=== PATIENT | male | born 1990 | race Caucasian/White ===

== ENCOUNTER 2019-05-12 21:38 | Emergency (ER) | payer BC, SELFPAY ==
[2019-05-12 21:39] VITALS: BP 157/93; PULSE 82; RESP 15; TEMP 36.6; O2SAT 96; BMI 32.8
--- NOTE | 2019-05-12 22:03 | US_ITS ---
STUDY: SCROTUM ULTRASOUND REASON FOR EXAM: Male, 28 years old. Pain. TECHNIQUE: Ultrasound evaluation of the scrotum was performed with color Doppler and static abraham-scale imaging. COMPARISON: None. FINDINGS: RIGHT Testicle: No mass, normal echogenicity. Normal arterial and venous Doppler flow. Measures 4.7 x 3.1 x 2.5 cm. Epididymis: Unremarkable. Hydrocele: None. Varicocele: None. LEFT Testicle: No mass, normal echogenicity. Normal arterial and venous Doppler flow. Measures 4.3 x 3.2 x 2.6 cm. Epididymis: Unremarkable. Hydrocele: Trace. Varicocele: None. US/Testicular with Arterial Flow IMPRESSION: Negative for bilateral testicular mass, torsion or epididymitis. Trace left hydrocele. Electronically Signed: Fabrice Quintero, at 23:53 EDT Tel , Service support ,
--- NOTE | 2019-05-12 22:03 | ED.DCSUM_ITS ---
History of Present Illness Chief Complaint: Male Pain/Injury Detail of Chief Complaint: Testicular pain Informant: Patient Onset: Weeks - 1 week Context: Gradual Onset Timing: Waxes and wanes Current Severity: Moderate Maximum Severity: Moderate Narrative: 1 week history of testicular pain. He has pain bilaterally. No significant erythema or edema. Patient does report urinary frequency and only small amounts. Urine appears concentrated. He has no lesions or discharge. No definitive diagnosis of gonorrhea or chlamydia in the past. No fever or chills. He has had some mild right flank pain. Past surgical history is significant for prior appendectomy. Past Medical History - Allergies and Home Meds Allergies/Adverse Reactions: Allergies Penicillins Allergy (Verified 05/12/19 21:41) Hives Sulfa (Sulfonamide Antibiotics) Allergy (Verified 05/12/19 21:41) Hives Primary Care Physician: Dontae Yo MD [Primary Care Provider] - Prior records reviewed: Yes Past Medical History: - - Reviewed Surgical History: appendectomy Smoking Status: Current every day smoker Review of Systems General: Denies: Chills, Fever Eyes: Denies: Visual changes - bilaterally ENT: Denies: Bilateral ear pain Cardiovascular: Denies: Chest pain Respiratory: Denies: Dyspnea Gastrointestinal: Reports: Abdominal pain - Mild right flank pain. Denies: Nausea, Vomiting, Diarrhea Genitourinary: Reports: Frequency. Denies: Dysuria, Hematuria Musculoskeletal: Denies: Extremity Pain Skin: Denies: Rash Neurological: Denies: Headache Hematologic: Denies: Easy bruising, Easy bleeding Allergy: Denies: Uticaria Physical Exam Vital Signs/Narrative: Vital Signs Temp Pulse Resp BP Pulse Ox 05/12/19 21:39 97.9 F 82 15 157/93 H 96 Inital Vital Signs reviewed: Yes General: Well nourished, Well developed Head: Normocephalic ENT: Moist mucous membranes Neck: Supple Cardiovascular: Regular rate, Regular rhythm Respiratory: No distress, CTA bilaterally Abdomen: Soft, Normal bowel sounds, Tender - Mild suprapubic tenderness to palpation.. Negative for: Guarding, Rebound tenderness : - - Mild testicular tenderness bilaterally. No palpable masses. No scrotal edema or erythema. Mild tenderness over the epididymis bilaterally. Back: Nontender Extremities: Nontender Skin: Normal color, No rash Neurological: Alert, Oriented x3 Psychological: Normal affect Diagnostic/Tx/Re-eval 05/12/19 22:03 US Testicular [Testicular with Arterial Flow] [US] Stat IMPRESSION: Negative for bilateral testicular mass, torsion or epididymitis. Trace left hydrocele. Laboratory Results 05/12/19 05/12/19 22:10 22:18 Urine Color Yellow Urine Clarity Sl. Cloudy Urine pH 5.0 Ur Specific [place] 1.030 Urine Protein 30 H Urine Glucose (UA) Normal Urine Ketones 5 H Urine Occult Blood 50 H Urine Nitrite Negative Urine Bilirubin 1 H Urine Urobilinogen 1 H Ur Leukocyte Esterase Negative Urine RBC 0-5 SEEN Urine WBC 0-5 SEEN Ur Squamous Epith Cells 0 SEEN Urine Bacteria 0 SEEN Urine Mucus 1+ Chlam trachomat DNA PCR Negative N.gonorrhoeae DNA (PCR) Negative - Medical Decision Making Patient did take ibuprofen just prior to arrival. Test results are discussed with the patient. He does have a small amount of hydrocele on the left. In light of this I did recommend scrotal support. If he does have a kidney stone I believe it is very small. We will treat him with Toradol. He will be referred to urology if not improving. ED Disposition - Plan for ED Patient: Disposition: Home or Assisted Living Diagnosis: Testicular pain Instructions: TESTICULAR PAIN, Unclear Cause Prescriptions: Ketorolac [Toradol] 10 mg PO Q6H PRN #20 tablet PRN Reason: Pain Score 1-10/10 Referrals: Sanjiv Castaneda MD [STAFF PHYSICIAN] - 1 Week if not improving
[2019-05-12 22:22] LABS: Bacteria 0 SEEN /hpf (None Seen); Squamous Epithelial Cells - UA 0 SEEN /hpf (0-5)
[2019-05-12 22:25] LABS: Color, Urine Yellow (Yellow); Glucose, Dipstick Normal (Normal); Ketone-Dipstick 5 mg/dl (Negative); Leukocyte Esterase-Dipstick Negative /ul (Negative); Nitrite-Dipstick Negative (Negative); Occult Blood-Urine 50 /ul (Negative); Protein-Dipstick 30 mg/dl (Negative); Urine Clarity Sl. Cloudy (Clear); Urine Urobilinogen 1 mg/dl (Normal)
[2019-05-12 22:28] LABS: Urine Bilirubin Dipstick 1 mg/dL (Negative)
[2019-05-12 22:39] LABS: Mucous, Urine 1+ /hpf (<or=2+); Red Blood Cells-Urine 0-5 SEEN /hpf (0-5); White Blood Cells 0-5 SEEN /hpf (0-5)
[2019-05-12 23:56] LABS: Chlamydia Trachomatis by PCR Negative (Negative); Neisserai gonorrhoeae by PCR Negative (Negative); Probe Check PASS; Sample Adequacy Control PASS; Specimen Processing Control PASS
[2019-05-13 00:47] VITALS: BP 118/76; PULSE 65; RESP 16; O2SAT 98
== END 2019-05-13 00:48 | disposition home or self-care (01) ==
PROVIDERS: Emergency Provider Emergency Medicine; Family Provider Family Medicine; PCP Family Medicine
DX: N50.819 Testicular pain, unspecified (principal); F17.200 Nicotine dependence, unspecified, uncomplicated; N20.0 Calculus of kidney
CPT/HCPCS: 76870; 81001; 87491; 87591; 93976; 99282

== ENCOUNTER 2019-06-04 05:59 | Emergency (ER) | payer BC, SELFPAY ==
[2019-06-04 06:00] VITALS: BP 135/91; PULSE 60; RESP 18; TEMP 36.8; O2SAT 98; BMI 33.1
--- NOTE | 2019-06-04 06:18 | CT_ITS ---
STUDY: CT ABDOMEN AND PELVIS WITHOUT CONTRAST REASON FOR EXAM: Male, 28 years old. Right-sided flank pain with radiation into his right groin. RADIATION DOSAGE (If Supplied By Facility): CTDIvol = ( 14.40 ) mGy, DLP = ( 827.62 ) mGycm TECHNIQUE: Transaxial images were obtained from the dome of the diaphragm to the symphysis pubis without oral contrast, and without intravenous contrast. Sagittal and coronal images were reconstructed. Individualized dose optimization techniques were used for this CT. COMPARISON: CT of the abdomen and pelvis dated February 28, 2015. FINDINGS: There is minimal bilateral basilar dependent atelectasis. The visualized portions of the heart are within normal limits. Normal liver. Normal gallbladder and extrahepatic biliary system. Normal spleen. Normal pancreas. Normal bilateral adrenal glands. There is mild hydronephrosis and hydroureter secondary to distal ureteral calculus at the ureterovesical junction measuring approximately 4.7 mm in greatest dimension. Normal left kidney. Normal visualized stomach. There is no evidence for dilated bowel, ascites or pneumoperitoneum. The small bowel has a grossly normal appearance. The ascending colon is nondistended. Transverse colon is also mildly nondistended with mild thickening of the deluca. Scattered colonic diverticula are present. There are surgical clips in the region of the appendix consistent with a prior appendectomy. Normal abdominal aorta. Normal inferior vena cava. Normal retroperitoneum. Normal urinary bladder. Normal visualized prostate gland. There appear to be small inguinal hernias containing fat. There are diffuse degenerative changes of the visualized thoracic spine. CT/Abdomen/Pelvis without Cont IMPRESSION: Mild right-sided hydronephrosis and hydroureter secondary to distal ureteral calculus. Electronically Signed: Heavenly Turner MD at 7:25 EDT , Service support ,
[2019-06-04 06:33] LABS: Absolute Lymphocyte Count 1.46 X10^3/uL (0.83-4.51); Absolute Neutrophil Count 4.5 X10^3/uL (2.0-7.7); Basophil# 0.07 X10^3/uL; Eosinophil# 0.22 X10^3/uL; Eosinophils% 3.1 % (0-5); Hematocrit 42.8 % (40-54); Hemoglobin 14.4 g/dL (13.0-16.5); Lymphocyte # 1.46 X10^3/ul (4.0); Lymphocyte % 20.8 % (19-41); Mean Corp Hgb Conc 33.6 g/dL (32-36); Mean Corpuscular Hgb 29.6 pg (27.0-32.0); Mean Corpuscular Volume 87.9 fL (80-94); Mean Platelet Vol. 9.7 fl (6.2-12.0); Monocyte# 0.74 X10^3/uL; Monocyte% 10.5 % (0-10); NRBC Flagged by Analyzer 0 % (0-5); Neutrophil # 4.49 X10^3/uL (2.7-7.7); Platelet Count 141 K/mm3 (150-450); RBC Distribution Width CV 11.9 % (11.6-14.6); Red Blood Count 4.87 M/mm3 (4.6-6.2)
[2019-06-04] MEDS: 0.9% Normal Saline 1,000 ML 999 ML IV (06:36)
[2019-06-04] MEDS: Ondansetron 4 MG/2 ML Vial IV (06:36)
[2019-06-04] MEDS: Morphine 4 MG/ML Syringe IV (06:37)
[2019-06-04] MEDS: Ketorolac 30 MG/ML Syringe IV (06:37)
--- NOTE | 2019-06-04 06:42 | ED.VIS.GEN ---
History of Present Illness Chief Complaint: Abd Pain Informant: Patient Onset: Today Context: Sudden Onset Timing: Continuous, Waxes and wanes Current Severity: Severe Maximum Severity: Severe Worsened by: Nothing Relieved by: Nothing Narrative: Patient is a 28-year-old male with no significant past medical history presenting with right flank and back pain. Patient states he had a small ache in his right flank area last night when he went to bed but did not think much of it. In the middle the night he woke up with severe flank and back pain. It radiates into his groin. The pain is constant but it seems to fluctuate in intensity. He describes it as sharp and aching. He does feel that he is having a hard time urinating but is still able to. He has associated nausea and one episode of vomiting. He had normal bowel movements. He denies any black or bloody vomit or stool. Patient was evaluated for similar pain about 3 weeks ago but at that time he was more testicular pain. He had a urine and ultrasound which were grossly negative and he was discharged home. Patient states the pain had resolved but then this pain started again tonight. Patient denies any abdominal pain with it. He denies any chest pain or difficulty breathing. He denies any fever or chills. He has not noticed any blood in his urine. He denies any penile discharge. He currently does not have any testicular pain. Past Medical History - Allergies and Home Meds Allergies/Adverse Reactions: Allergies Penicillins Allergy (Verified 05/12/19 21:41) Hives Sulfa (Sulfonamide Antibiotics) Allergy (Verified 05/12/19 21:41) Hives Primary Care Physician: Dontae Yo MD [Primary Care Provider] - Past Medical History: None Surgical History: appendectomy Smoking Status: Current every day smoker Review of Systems All systems negative except as indicated Gastrointestinal: Reports: - - Flank pain Genitourinary: Reports: - - Decreased urination Musculoskeletal: Reports: Back pain - Right lower Physical Exam Vital Signs/Narrative: Vital Signs Temp Pulse Resp BP Pulse Ox 06/04/19 06:00 98.3 F 60 18 135/91 H 98 Inital Vital Signs reviewed: Yes General: Well nourished, Well developed, No Acute Distress, - - Patient is hunched over the bed when I first come in Head: Normocephalic, Atraumatic Eyes: Perrl, EOMI ENT: Moist mucous membranes, No rhinorrhea Neck: Supple, Nontender Cardiovascular: Regular rate, Regular rhythm, No murmurs Respiratory: No distress, CTA bilaterally, Chest nontender Abdomen: Soft, Nontender, Nondistended, Normal bowel sounds. Negative for: Shrestha's sign Back: Normal Inspection, - - Right flank tenderness to palpation. Negative for: CVA tenderness Extremities: Nontender, No edema Skin: Normal color, No rash Neurological: Alert, Oriented x3, Cranial nerves II-XII grossly intact, Normal Strength, Normal Sensation Psychological: Normal affect, Normal Mood Diagnostic/Tx/Re-eval Clinical Impression(s) from Imaging Studies Abdomen/Pelvis CT 06/04/19 06:18 IMPRESSION: Mild right-sided hydronephrosis and hydroureter secondary to distal ureteral calculus. Electronically Signed: Heavenly Turner MD at 7:25 EDT , Service support , Laboratory Data 06/04/19 06/04/19 06/04/19 06:28 06:28 06:45 WBC 7.0 RBC 4.87 Hgb 14.4 Hct 42.8 MCV 87.9 MCH 29.6 MCHC 33.6 RDW Std Deviation 38.0 RDW Coeff of [place] 11.9 Plt Count 141 L MPV 9.7 Immature Gran % (Auto) 0.600 Neut % (Auto) 64.0 Lymph % (Auto) 20.8 [place] % (Auto) 10.5 H Eos % (Auto) 3.1 Baso % (Auto) 1.0 Absolute Neuts (auto) 4.5 Absolute Lymphs (auto) 1.46 Nucleated RBC % 0 Sodium 142 Potassium 3.5 Chloride 108 H Carbon Dioxide 26.0 Anion Gap 8 BUN 15 Creatinine 1.23 Estim Creat Clear Calc 96.08 Est GFR (MDRD) Af Amer 90 Est GFR (MDRD) Non-Af 75 BUN/Creatinine Ratio 12.2 Glucose 104 Calcium 8.8 Urine Color Yellow Urine Clarity Clear Urine pH 5.0 Ur Specific [employer] [place] [employer] 1.030 Urine Protein 15 H Urine Glucose (UA) Normal Urine Ketones 5 H Urine Occult Blood Negative Urine Nitrite Negative Urine Bilirubin Negative Urine Urobilinogen 1 H Ur Leukocyte Esterase Negative Urine RBC 0 SEEN Urine WBC 0 SEEN Ur Squamous Epith Cells 0-5 SEEN Urine Bacteria 0 SEEN Urine Mucus 2+ - Medical Decision Making Patient is evaluated for sudden onset of right flank pain. He appears uncomfortable but no acute distress. Vital signs are stable. CBC, BMP and urinalysis are grossly normal. CT does show right ureterolithiasis just proximal to the UVJ. Is explained to patient's pain. Patient is given IV morphine, fluids and Toradol. He has improvement of his symptoms with this treatment. He will be discharged home with kidney stone instructions as well as symptomatic treatment. He has a small stone which I expect him to pass spontaneously. He is given urology for follow-up as needed. He is encouraged to follow-up with his primary care doctor. He is given a work note for today. Patient is counseled on signs and symptoms requiring return to the emergency room. Patient verbalizes agreement and understand this plan. Patient discharged home in stable and improved condition. ED Disposition - Plan for ED Patient: Disposition: Home or Assisted Living Diagnosis: Right ureteral stone Instructions: KIDNEY STONE w/ Colic Prescriptions: Tamsulosin HCl [Flomax] 0.4 mg PO DAILY #7 cap Prescription Printed Ibuprofen [Ibu] 600 mg PO Q6H PRN PRN #20 tab PRN Reason: Pain Or Fever Prescription Printed Hydrocodone/Acetaminophen [Altheimer 5-325 Tablet] 1 ea PO Q8 PRN 3 Days #12 tab PRN Reason: Pain Score 6-10/10 Prescription Printed Ondansetron [Zofran Odt] 4 mg PO Q8H PRN PRN #10 tab PRN Reason: Nausea Prescription Printed Referrals: Dontae Yo MD [Primary Care Provider] - Sanjiv Castaneda MD [STAFF PHYSICIAN] - Additional Instructions: Take medications as prescribed. Avoid operating any heavy machinery while taking Altheimer. Return to ER if you developing worsening symptoms or unable to control your pain. If your symptoms are persistent please follow-up with urology which you have been referred to today. Otherwise, please follow-up with your primary care doctor. Drink plenty of fluids.
[2019-06-04 06:46] LABS: Anion Gap 8 (5-15); BUN 15 mg/dL (7-18); BUN/Creat Ratio 12.2 RATIO (10-20); Calcium,Total 8.8 mg/dL (8.5-10.1); Chloride 108 mmol/L (98-107); Creatinine, Serum 1.23 mg/dL (0.70-1.30); EST Glomerular Filtration Rate 75 mL/min (>60); Est Glom Filt Rate - Afr Amer 90 mL/min (>60); Estimated Creatinine Clearance 96.08 ml/min; Glucose 104 mg/dL (74-106); Potassium 3.5 mmol/L (3.5-5.1); Sodium Level 142 mmol/L (136-145)
[2019-06-04 06:51] LABS: Bacteria 0 SEEN /hpf (None Seen); Red Blood Cells-Urine 0 SEEN /hpf (0-5); White Blood Cells 0 SEEN /hpf (0-5)
[2019-06-04 07:08] LABS: Color, Urine Yellow (Yellow); Glucose, Dipstick Normal (Normal); Ketone-Dipstick 5 mg/dl (Negative); Leukocyte Esterase-Dipstick Negative /ul (Negative); Nitrite-Dipstick Negative (Negative); Occult Blood-Urine Negative /ul (Negative); Protein-Dipstick 15 mg/dl (Negative); Urine Bilirubin Dipstick Negative (Negative); Urine Clarity Clear (Clear); Urine Urobilinogen 1 mg/dl (Normal)
[2019-06-04 07:18] LABS: Mucous, Urine 2+ /hpf (<or=2+); Squamous Epithelial Cells - UA 0-5 SEEN /hpf (0-5)
[2019-06-04 08:32] VITALS: BP 106/77; PULSE 62; RESP 17; O2SAT 98
== END 2019-06-04 08:33 | disposition home or self-care (01) ==
PROVIDERS: Emergency Provider Emergency Medicine; Family Provider Family Medicine; PCP Family Medicine
DX: N13.2 Hydronephrosis with renal and ureteral calculous obstruction (principal); F17.200 Nicotine dependence, unspecified, uncomplicated
CPT/HCPCS: 74176; 80048; 81001; 85025; 96361; 96374; 96375; 99284; J7030; J2405

== ENCOUNTER 2020-07-16 22:14 | Emergency (ER) | payer MEDICAID, SELFPAY ==
[2020-07-16 22:16] VITALS: BP 163/95; PULSE 86; RESP 18; TEMP 35.7; O2SAT 100; BMI 34.5
--- NOTE | 2020-07-16 22:26 | EKG12_ITS ---
Test Reason : SOB Blood Pressure : / mmHG Vent. Rate : 063 BPM Atrial Rate : 063 BPM P-R Int : 180 ms QRS Dur : 106 ms QT Int : 390 ms P-R-T Axes : 025 -07 012 degrees QTc Int : 399 ms Normal sinus rhythm with sinus arrhythmia Minimal voltage criteria for LVH, may be normal variant Borderline ECG Confirmed by FLAVIA ALLEN, YESENIA ([id number]), manuscript editor CHRISTO HA ([id number]) on 07/18/2020 2:04:59 PM Referred By: MERLIN Confirmed By:RUPESH ALEJANDRO MD
--- NOTE | 2020-07-16 22:32 | ED.VIS.GEN ---
History of Present Illness Chief Complaint: Shortness of Breath Informant: Patient Onset: Weeks Context: Gradual Onset Timing: Intermittent Current Severity: Moderate Maximum Severity: Moderate Narrative: Patient is a 29-year-old male who is otherwise healthy who presents to the emergency department intermittent shortness of breath. Patient states it is been going on for about a month. 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 He states his been negative every time. He states sometimes, with exertion, he gets tightness that is bandlike across his chest. He states when he takes a deep breath, it seems to be painful. He has had a scant cough. He denies any fevers or chills. He denies any other systemic complaints. He has no history of pulmonary embolus. He does occasionally smoke. Prior similar symptoms: No Recent Illness/Hospitalization: No Past Medical History - Allergies and Home Meds Allergies/Adverse Reactions: Allergies Penicillins Allergy (Verified 07/16/20 22:34) Hives Sulfa (Sulfonamide Antibiotics) Allergy (Verified 07/16/20 22:34) Hives Primary Care Physician: Willi Arevalo,Out of [Primary Care Provider] - Prior records reviewed: Yes Past Medical History: None Surgical History: appendectomy Smoking Status: Current every day smoker Review of Systems General: Denies: Chills, Fever, Sweats Eyes: Denies: Visual changes - bilaterally, Diplopia ENT: Denies: Rhinorrhea, Sore throat Cardiovascular: Denies: Chest pain, Palpitations Respiratory: Reports: Dyspnea, Cough. Denies: Dyspnea on exertion Gastrointestinal: Denies: Abdominal pain, Nausea, Vomiting, Diarrhea, Melena, Hematochezia Genitourinary: Denies: Dysuria, Hematuria, Frequency Musculoskeletal: Denies: Back pain, Extremity Pain Skin: Denies: Rash, Wounds Neurological: Denies: Headache, Weakness, Numbness Physical Exam Vital Signs/Narrative: Vital Signs Temp Pulse Resp BP Pulse Ox 07/16/20 22:16 96.3 F L 86 18 163/95 H 100 Inital Vital Signs reviewed: Yes General: Well nourished, Well developed, No Acute Distress Head: Normocephalic, Atraumatic Eyes: Perrl, EOMI ENT: Moist mucous membranes, No rhinorrhea Neck: Supple, Nontender Cardiovascular: Regular rate, Regular rhythm, No murmurs Respiratory: No distress, CTA bilaterally, Chest nontender Abdomen: Soft, Nontender, Nondistended, Normal bowel sounds Back: Nontender, Normal Inspection Extremities: Nontender, No edema Skin: Normal color, No rash Neurological: Alert, Oriented x3, Cranial nerves II-XII grossly intact, Normal Strength, Normal Sensation Psychological: Normal affect, Normal Mood Diagnostic/Tx/Re-eval Chest X-Ray - ED: 1 View, Read by ED Physician, Normal, Heart, Lungs, Mediastinum Clinical Impression(s) from Imaging Studies Chest X-Ray 07/16/20 22:45 IMPRESSION: Normal x-ray examination of the chest. Electronically Signed: Lilia Mao MD at 23:03 EST , Service support , - Rhythm Strip Rhythm Strip: Sinus Rhythm Rate: 80 Ectopy: None - EKG Initial EKG Interpretation: Sinus Rhythm, No Acute Injury Pattern Prior: Unchanged - Medical Decision Making Patient presents with intermittent shortness of breath. He does describe some pleuritic pain. He is not hypoxic, tachypneic, or tachycardic. EKG was obtained on arrival. Was sinus rhythm without evidence of acute ischemia. Chest x-ray was done. It was reviewed by myself and both the radiologist. There is no evidence of acute infiltrative process, pneumothorax, or large cardiac silhouette. D-dimer was negative. At this point, I do not have a great explanation for the patient's dyspnea, but he is saturating 100% on room air and has an unremarkable work-up. I am going to add an inhaler to see if that helps if he has some underlying bronchospasm. He is comfortable with this plan of care and will be discharged home. Impression 1. Dyspnea ED Disposition - Plan for ED Patient: Instructions: ED Bronchitis, No Antibiotic (Adult) Referrals: [facility] Doctor,Out of [Primary Care Provider] -
[2020-07-16 22:34] VITALS: BP 154/86; PULSE 69; RESP 16
--- NOTE | 2020-07-16 22:45 | RAD_ITS ---
STUDY: X-RAY CHEST REASON FOR EXAM: Male, 29 years old. FEELS LIKE HE CAN''T CATCH HIS BREATH X 1 MONTH. TECHNIQUE: 1 view COMPARISON: Prior chest radiograph of 11/15/2016 FINDINGS: The lungs are clear and expanded. There is no demonstrated pleural abnormality. Normal size heart. Normal mediastinum and harry. Normal visualized pulmonary arteries. Normal visualized aortic arch and descending thoracic aorta. Normal visualized thoracic spine. Normal visualized ribs, clavicles, and shoulders. There is no demonstrated abnormality of the visualized soft tissue structures of the upper abdomen. RAD/Chest 1 View (Portable) IMPRESSION: Normal x-ray examination of the chest. Electronically Signed: Lilia Mao MD at 23:03 EST , Service support ,
[2020-07-16 22:54] LABS: Absolute Lymphocyte Count 2.38 X10^3/uL (0.83-4.51); Basophil# 0.07 X10^3/uL; Basophil% 0.9 % (0-1); Eosinophil# 0.23 X10^3/uL; Hematocrit 45.6 % (40-54); Hemoglobin 15.1 g/dL (13.0-16.5); Lymphocyte # 2.38 X10^3/ul (4.0); Lymphocyte % 31.3 % (19-41); Mean Corp Hgb Conc 33.1 g/dL (32-36); Mean Corpuscular Hgb 28.8 pg (27.0-32.0); Mean Platelet Vol. 9.9 fl (6.2-12.0); Monocyte# 0.87 X10^3/uL; Monocyte% 11.4 % (0-10); NRBC Flagged by Analyzer 0 % (0-5); Neutrophil # 4.02 X10^3/uL (2.7-7.7); Neutrophil % 52.9 % (47-70); Platelet Count 220 K/mm3 (150-450); RBC Distribution Width CV 11.9 % (11.6-14.6); Red Blood Count 5.24 M/mm3 (4.6-6.2); White Blood Count 7.6 K/mm3 (4.4-11.0)
[2020-07-16 23:04] LABS: Anion Gap 4 (5-15); BUN 18 mg/dL (7-18); BUN/Creat Ratio 17.3 RATIO (10-20); Calcium,Total 9.4 mg/dL (8.5-10.1); Chloride 108 mmol/L (98-107); Creatinine, Serum 1.04 mg/dL (0.70-1.30); EST Glomerular Filtration Rate 90 mL/min (>60); Est Glom Filt Rate - Afr Amer 109 mL/min (>60); Estimated Creatinine Clearance 112.63 ml/min; Glucose 89 mg/dL (74-106); Potassium 3.6 mmol/L (3.5-5.1); Sodium Level 142 mmol/L (136-145)
[2020-07-16 23:06] LABS: D-Dimer Quantitative (DVT/PE) 0.27 FEU/ug/m (0.27-0.49)
[2020-07-16 23:37] VITALS: BP 148/74; PULSE 71; RESP 16; O2SAT 98
== END 2020-07-16 23:38 | disposition home or self-care (01) ==
LOC: ED 23:23
PROVIDERS: Emergency Provider Emergency Medicine
DX: R06.00 Dyspnea, unspecified (principal); F17.200 Nicotine dependence, unspecified, uncomplicated
CPT/HCPCS: 71045; 80048; 85025; 85379; 93005; 99284; J7040; A4216

== ENCOUNTER 2021-02-04 12:37 | Emergency (ER) | payer OTHER, MEDICAID, SELFPAY ==
[2021-02-04 12:38] VITALS: BP 125/81; PULSE 103; RESP 16; TEMP 36.3; O2SAT 97; BMI 32.9
[2021-02-04] MEDS: Clindamycin HCl 150 MG Capsule 300 MG PO (15:57)
[2021-02-04] MEDS: Lidocaine 1% (20 ml mdv) 20 ML Vial INFILT (15:57)
[2021-02-04 15:58] VITALS: BP 138/74; PULSE 100; RESP 16; O2SAT 99
--- NOTE | 2021-02-04 18:47 | EDS_ITS ---
HPI History of Present Illness HPI Narrative: Patient presents with laceration to his right knee that occurred today. Patient was using a right angle pulp grinder and blender. Patient states he accidentally hit it against his right knee. Patient states his last tetanus was within 5 years. Patient denies any paresthesias or weakness. Patient states the bleeding stopped after a few minutes. Patient denies any other injuries. Chief Complaint: Laceration Informant: patient Occured/Mechanism Comment: Cut right knee with angle pulp grinder and blender Onset/Context/Timing Onset: Today Context: Sudden Onset Timing: Continuous Location: Right knee Worsened by: Nothing Relieved by: Nothing Associated Symptoms Associated Symptoms: Negative for Parasthesia and Weakness Narrative Tetanus Immunization: <5 years [facility] Medical History (Updated 02/04/21 @ 18:[address] Uday Ivy DO) Hypercholesterolemia Home Medications clindamycin HCl [Cleocin HCl] 300 mg PO Q6H #40 capsule 02/04/21 [Rx Last Taken Unknown] Allergy/AdvReac Type Severity Reaction Status Date / Time Penicillins Allergy Hives Verified 02/04/21 12:38 Sulfa (Sulfonamide Allergy Hives Verified 02/04/21 12:38 Antibiotics) Surgical History History of appendectomy Social History Smoking Status: Current every day smoker tobacco type: cigarettes ROS ROS ED Constitutional Constitutional ED: Denies chills or fever(s) Eyes Eyes: Denies blurry vision or change in vision ENT ENT ED: Denies rhinorrhea or sore throat Cardiovascular Cardiovascular: Denies chest pain or palpitations Respiratory/Chest Respiratory/Chest: Denies cough or dyspnea Gastrointestinal Gastrointestinal: Denies nausea or vomiting Genitourinary Genitourinary ED: Denies dysuria or hematuria Musculoskeletal Musculoskeletal: Denies back pain or neck pain Integumentary Denies abscess or rash Neurologic Neurologic: Denies headache(s) or weakness Allergic/Immunologic Allergic/Immunologic ED: Denies mouth swelling or urticaria EXAM Physical Exam Const Vital Signs: 02/04/21 12:38 02/04/21 15:58 Temperature 97.3 F L Temperature Source Temporal Pulse Rate 103 H 100 Respiratory Rate 16 16 Blood Pressure 125/81 H 138/74 H Blood Pressure Mean 95 Pulse Ox 97 99 Oxygen Delivery Method Room Air Positive well nourished and well developed General Appearance ED: well developed HEENT Reports moist mucous membranes normocephalic and atraumatic Extremity Extremity Narrative: There is a 4 cm linear laceration transversely across the anterior right knee. There are no foreign bodies. There is no active bleeding. There is mild gapping of the wound margins. There is full range of motion of the right knee. There is no laxity appreciated. There is no effusion. There is no swelling of the prepatellar bursa. There is no erythema or warmth. Neuro oriented x3, CN's II-XII intact bilaterally, moves all extremities and no sensory deficits noted Sensorium / Orientation: alert Motor Exam: strength 5/5 throughout Psych mental status grossly normal MDM MDM MDM Narrative Medical decision making narrative: The wound was cleaned and irrigated with copious amounts of normal saline. The wound was anesthetized with 1% plain lidocaine locally. The wound was closed with 5 simple interrupted #4-0 nylon sutures under sterile technique. Patient tolerated the procedure well. Bacitracin dressing was applied. Patient was given a dose of clindamycin here. Patient was given a prescription for clindamycin. Patient was instructed to keep the wound clean and dry. Patient was instructed to follow-up with his primary care physician in 7 days for wound recheck and suture removal. Patient understood and was agreeable with the plan. All questions were answered. Procedures Lacerations Right knee: Length: 4 cm Depth: Skin Shape: Linear Prep: Sterile Conditions and Chlorhexadine Laceration repair: Irrigated, Lidocaine, Local and Skin sutures Irrigated (ml): 100 Number of Sutures/[place]: 5 Suture Information: Ethilon, Simple and 4-0 Discharge Plan Triage Chief Complaint: Laceration ED Provider: Uday Ivy Dx/Rx/DC Orders Clinical Impression: Laceration of right knee Instructions: ED Laceration: All Closures Prescriptions: New clindamycin HCl [Cleocin HCl] 300 MG capsule 300 mg PO Q6H Qty: 40 RF: 0 Primary Care Provider: Care Physician,No Primary Referrals: Carmine Oro MD [NON-STAFF] - 7 Days for suture removal Care Physician,No Primary [Primary Care Provider] - Disposition Disposition: Home, Self Care Discharge Date/Time: 02/04/21 16:09
== END 2021-02-04 16:09 | disposition home or self-care (01) ==
PROVIDERS: Emergency Provider Emergency Medicine
DX: S81.011A Laceration without foreign body, right knee, initial encounter (principal); F17.210 Nicotine dependence, cigarettes, uncomplicated; W27.8XXA Contact with other nonpowered hand tool, initial encounter
CPT/HCPCS: 12002; 90471; 99283

== ENCOUNTER 2023-05-02 13:23 | Emergency (ER) | payer OTHER, MEDICAID, SELFPAY ==
[2023-05-02 13:26] VITALS: BP 141/88; PULSE 89; RESP 18; TEMP 36.3; O2SAT 98; BMI 32.8
--- NOTE | 2023-05-02 13:36 | EKG12_ITS ---
Test Reason : CHEST PAIN Blood Pressure : / mmHG Vent. Rate : 079 BPM Atrial Rate : 079 BPM P-R Int : 168 ms QRS Dur : 102 ms QT Int : 366 ms P-R-T Axes : 041 004 029 degrees QTc Int : 419 ms Normal sinus rhythm Normal ECG When compared with ECG of 16-JUL-2020 22:34, No significant change was found Confirmed by FLAVIA ALLEN, YESENIA ([id number]), publishing editor CHRISTO HA ([id number]) on 05/04/2023 9:53:09 AM Referred By: MEMO Confirmed By:RUPESH ALEJANDRO MD
--- NOTE | 2023-05-02 13:36 | RAD_ITS ---
STUDY: X-RAY CHEST REASON FOR EXAM: Male, 32 years old. Chest pain -- -- Pt c/o chest pain that''s been on and off past 3 days in addition to some and quot; stomach issues and quot; that include nausea. Hx of severe anxiety but this and quot;feels different TECHNIQUE: Single AP portable view of the chest. COMPARISON: Comparison is made with prior study dated July 16, 2020. FINDINGS: EKG electrodes are seen. The lungs are clear and expanded. There is no demonstrated pleural abnormality. Normal size heart. Normal mediastinum and harry. Normal visualized pulmonary arteries. Normal visualized aortic arch and descending thoracic aorta. Normal visualized thoracic spine. Normal visualized ribs, clavicles, and shoulders. There is no demonstrated abnormality of the visualized soft tissue structures of the upper abdomen. RAD/Chest 1 View (Portable) IMPRESSION: Normal x-ray examination of the chest. Electronically Signed: Eugene Calderón MD at 14:24 EDT ,
--- NOTE | 2023-05-02 13:37 | EDS_ITS ---
HPI History of Present Illness Chief Complaint: Chest Pain Detail of Chief Complaint: Chest pain, shortness of breath, abdominal pain Informant: patient Narrative Narrative: Patient presents to the emergency department with complaint of chest pain as well as burning abdominal pain and shortness of breath for the last 3 to 4 days. Patient states that he has history of severe anxiety and depression and just attributed that initially. Patient denies recent travel or surgery. No significant family history of heart disease. Patient states that for the burning stomach pain has been taking Tums and that seems to be helpful. He currently denies any recent fever. He has a chronic cough. Patient is a smoker. [facility] Medical History (Updated 05/02/23 @ 14:[address] Se Boland DO) Acute anxiety Chest pressure Depression Hypercholesterolemia Shortness of breath Home Medications lansoprazole 30 mg capsule,delayed release (Prevacid) 30 mg PO DAILY #14 caps 05/02/23 [Rx Last Taken Unknown] Allergy/AdvReac Type Severity Reaction Status Date / Time Penicillins Allergy Hives Verified 05/02/23 13:26 Sulfa (Sulfonamide Allergy Hives Verified 05/02/23 13:26 Antibiotics) Surgical History History of appendectomy Social History Smoking Status: Current every day smoker tobacco type: cigarettes ROS ROS ED Review of Systems ROS Unobtainable: other Constitutional Constitutional ED: Reports lethargy; Denies chills, fever(s), sweats or weight loss Eyes Eyes: Denies blurry vision, change in vision or diplopia ENT ENT ED: Denies rhinorrhea or sore throat Cardiovascular Cardiovascular: Reports chest pain and racing heartbeat; Denies orthopnea Respiratory/Chest Respiratory/Chest: Reports cough, dyspnea and dyspnea on exertion; Denies orthopnea or sputum Gastrointestinal Gastrointestinal: Reports abdominal pain and nausea; Denies diarrhea or vomiting Genitourinary Genitourinary ED: Denies dysuria, hematuria or urinary frequency Musculoskeletal Musculoskeletal: Denies arthralgias, back pain, myalgias or neck pain Integumentary Denies abscess, Abrasions or rash Neurologic Neurologic: Denies headache(s) or weakness Psychiatric Psychiatric: Denies anxiety, depression or suicidal thoughts Endocrine Endocrinology: Denies polydipsia, polyphagia or polyuria Hematologic/Lymphatic Hematologic/Lymphatic: Denies easy bleeding, easy bruising or lymphadenopathy Allergic/Immunologic Allergic/Immunologic ED: Denies mouth swelling, tongue swelling or urticaria EXAM Physical Exam Const Vital Signs: 05/02/23 13:26 05/02/23 13:42 05/02/23 13:42 Temperature 97.3 F L Temperature Source Temporal Pulse Rate 89 72 Respiratory Rate 18 26 H Respiratory Effort Blood Pressure 141/88 H Blood Pressure Mean 105 Pulse Ox 98 97 97 Oxygen Delivery Method Room Air Room Air Room Air 05/02/23 13:42 05/02/23 14:25 Temperature Temperature Source Pulse Rate 86 Respiratory Rate 18 Respiratory Effort Short of Breath Blood Pressure Blood Pressure Mean Pulse Ox 95 Oxygen Delivery Method Positive well nourished and well developed General Appearance ED: well developed and NAD HEENT Reports TM's clear and moist mucous membranes normocephalic and atraumatic; Negative for trauma or tenderness Tympanic Membrane ED: Yes TM's clear Eyes PERRL and EOMs intact bilaterally General Eye ED: Negative for pale conjunctiva or scleral icterus Neck no lymphadenopathy, supple and no JVD General: Negative for tenderness Chest Wall inspection of chest normal and palpation of chest normal Chest: Negative for tenderness Resp normal respiratory effort and clear to auscultation bilaterally Effort and Inspection: Negative for respiratory distress or pain with movement Auscultation: Negative for rhonchi, wheezes or diminished lung sounds Cardio regular rate, regular rhythm, S1 normal heart sound, S2 normal heart sound and no murmurs Peripheral Pulses: pulses 2+ throughout GI normal to inspection, nondistended, normoactive bowel sounds, soft to palpation, non-tender, non-distended and no masses GI Narrative: More active bowel sounds. No significant tenderness on exam. There is no rebound, rigidity, or peritoneal signs. No masses palpated. Back/Spine no CVA tenderness and no thoracic nor lumbar tenderness Extremity normal to inspection General Extremety ED: Negative for edema General Extremity: Negative for edema Neuro oriented x3, CN's II-XII intact bilaterally, no sensory deficits noted and gait normal Sensorium / Orientation: awake, alert, oriented to person, oriented to place and oriented to time Motor Exam: strength 5/5 throughout and strength abnormal Psych mental status grossly normal Skin no rashes or lesions noted and no wounds MDM MDM MDM Narrative Medical decision making narrative: Presents with chest pain and abdominal pain as well as shortness of breath x3 to 4 days. He has history of anxiety. In the differential would be anxiety versus myocarditis or pericarditis or pneumothorax which I feel are relatively unlikely. No significant risk factors for PE. Suspect the burning abdominal pain that is relieved with Tums may be indigestion or acid reflux. Patient had an EKG on arrival that showed a sinus rhythm with a rate of 79 bpm with no acute ST segment changes. Will obtain basic labs. CBC with differential is normal. Chemistries and LFTs were normal. Troponin was normal. D-dimer was normal at less than 0.27. Lipase was normal. Chest x-ray 1 view interpreted by myself as no evidence of acute disease process such as pneumothorax or infiltrate. Patient was given a GI cocktail. This point suspect likely anxiety and this is what patient also suspects may be going on. I will start him on this it for 2 weeks. Advised to follow-up with his primary care physician within next 3 to 5 days. Lab Data Attestation: I reviewed the patient's lab results. Labs: Laboratory Results - last 24 hr 05/02/23 13:40 WBC 9.9 RBC 4.93 Hgb 15.2 Hct 44.8 MCV 90.9 MCH 30.8 MCHC 33.9 RDW Std Deviation 40.7 RDW Coeff of [place] 12.3 Plt Count 224 MPV 9.8 Immature Gran % (Auto) 0.700 Neut % (Auto) 67.5 Lymph % (Auto) 18.9 L Woodruff % (Auto) 8.2 Eos % (Auto) 4.0 Baso % (Auto) 0.7 Absolute Neuts (auto) 6.7 Absolute Lymphs (auto) 1.86 Nucleated RBC % 0 D-Dimer Quant (PE/DVT) < 0.27 L Sodium 140 Potassium 3.9 Chloride 107 Carbon Dioxide 28.0 Anion Gap 5 BUN 13 Creatinine 0.96 Estim Creat Clear Calc 118.75 Est GFR (MDRD) Af Amer 116 Est GFR (MDRD) Non-Af 96 BUN/Creatinine Ratio 13.5 Glucose 115 H Calcium 9.1 Total Bilirubin 0.30 Direct Bilirubin 0.10 AST 17 ALT 32 Alkaline Phosphatase 87 Troponin I High Sens < 3 L Total Protein 7.0 Albumin 3.7 Globulin 3.3 Lipase 42 Radiography Chest X-Ray - ED: 1 View Diagnostic Testing: Clinical Impression(s) from Imaging Studies Chest X-Ray 05/02/23 13:36 IMPRESSION: Normal x-ray examination of the chest. Electronically Signed: Eugene Calderón MD at 14:24 EDT , 1 view chest x-ray obtained interpreted by myself as no evidence of infiltrate or pneumothorax or acute disease process. EKG Initial EKG: Attestation: I personally reviewed and interpreted this EKG as follows: Comments: Sinus rhythm with a rate of 79 bpm with no acute ST segment changes Discharge Plan Triage Chief Complaint: Chest Pain ED Provider: Se Boland Dx/Rx/DC Orders Clinical Impression: Anxiety, Chronic GERD, Chest pain Instructions: ED Anxiety Reaction, ED Chest Pain, Uncertain Cause, ED GERD (Adult) Prescriptions: New lansoprazole [Prevacid] 30 mg capsule,delayed release(DR/EC) 30 mg PO DAILY Qty: 14 0RF Stand Alone Forms: Work / School Excuse Primary Care Provider: Care Physician,No Primary Referrals: Nicholas Weinstein MD [Med Staff - Active Staff] - 3-5 Days Care Physician,No Primary [Primary Care Provider] - Disposition Disposition: Home, Self Care Discharge Date/Time: 05/02/23 14:28
[2023-05-02 13:42] VITALS: PULSE 72; RESP 26; O2SAT 97
[2023-05-02 13:53] LABS: Absolute Lymphocyte Count 1.86 X10^3/uL (0.83-4.51); Absolute Neutrophil Count 6.7 X10^3/uL (2.0-7.7); Basophil# 0.07 X10^3/uL; Basophil% 0.7 % (0-1); Eosinophil# 0.39 X10^3/uL; Hematocrit 44.8 % (40-54); Hemoglobin 15.2 g/dL (13.0-16.5); Lymphocyte # 1.86 X10^3/ul (0.83-4.51); Lymphocyte % 18.9 % (19-41); Mean Corp Hgb Conc 33.9 g/dL (32-36); Mean Corpuscular Hgb 30.8 pg (27.0-32.0); Mean Corpuscular Volume 90.9 fL (80-94); Mean Platelet Vol. 9.8 fl (6.2-12.0); Monocyte# 0.81 X10^3/uL; Monocyte% 8.2 % (0-10); NRBC Flagged by Analyzer 0 % (0-5); Neutrophil # 6.66 X10^3/uL (2.7-7.7); Neutrophil % 67.5 % (47-70); Platelet Count 224 K/mm3 (150-450); RBC Distribution Width CV 12.3 % (11.6-14.6); RBC Distribution Width SD 40.7 fl (35.1-43.9); Red Blood Count 4.93 M/mm3 (4.6-6.2); White Blood Count 9.9 K/mm3 (4.4-11.0)
[2023-05-02 14:00] LABS: D-Dimer Quantitative (DVT/PE) < 0.27 FEU/ug/m (0.27-0.49)
[2023-05-02 14:04] LABS: Anion Gap 5 (5-15); BUN 13 mg/dL (7-18); BUN/Creat Ratio 13.5 RATIO (10-20); Calcium,Total 9.1 mg/dL (8.5-10.1); Chloride 107 mmol/L (98-107); Creatinine, Serum 0.96 mg/dL (0.70-1.30); EST Glomerular Filtration Rate 96 mL/min (>60); Est Glom Filt Rate - Afr Amer 116 mL/min (>60); Estimated Creatinine Clearance 118.75 ml/min; Glucose 115 mg/dL (74-106); Lipase 42 U/L (13-75); Potassium 3.9 mmol/L (3.5-5.1); Sodium Level 140 mmol/L (136-145); Troponin-I HS (w/2H Reflex) < 3 pg/mL (3.0-78.0)
[2023-05-02 14:07] LABS: AST(SGOT) 17 U/L (15-37); Alanine Aminotransfer ALT/SGPT 32 U/L (16-61); Albumin, Serum 3.7 g/dL (3.2-5.0); Alkaline Phosphatase 87 U/L (45-117); Globulin 3.3 g/dL (2.2-4.2)
[2023-05-02] MEDS: 0.9% Normal Saline (1000mL) 1,000 ML 150 ML IV (14:14)
[2023-05-02] MEDS: Mag Hydrox/Al Hydrox/Simeth 30 ML UDC PO (14:18)
[2023-05-02 14:25] VITALS: PULSE 86; RESP 18; O2SAT 95
[2023-05-02 15:45] LABS: Reflex Troponin-HS? (from REC) Y
== END 2023-05-02 14:28 | disposition home or self-care (01) ==
PROVIDERS: Emergency Provider Emergency Medicine; Visit Provider Emergency Medicine
DX: F41.9 Anxiety disorder, unspecified (principal); K21.9 Gastro-esophageal reflux disease without esophagitis; R07.9 Chest pain, unspecified; F17.210 Nicotine dependence, cigarettes, uncomplicated
CPT/HCPCS: 71045; 80048; 80076; 83690; 84484; 85025; 85379; 93005; 99285; J7030; A4216